=== PATIENT | male | born 1955 | race Caucasian/White ===

== ENCOUNTER 2020-07-26 14:57 | Outpatient (REF) | payer BC, SELFPAY ==
[2020-07-26 17:49] LABS: Free T4 (Free Thyroxine) 1.54 ng/dL (0.71-1.85); Thyroid Stimulating Hormone 0.63 uIU/mL (0.32-4.0)
== END 2020-07-26 14:58 | disposition home or self-care (01) ==
LOC: HO.LAB 14:57
PROVIDERS: PCP Internal Medicine; Visit Provider Internal Medicine Endocrinology, Diabetes & Metabolism
DX: E89.0 Postprocedural hypothyroidism (principal)
CPT/HCPCS: 36415; 84439; 84443

== ENCOUNTER → 2020-07-29 07:57 | Outpatient (BNVA) | payer BC, SELFPAY | PROVIDERS: PCP Internal Medicine; Visit Provider Internal Medicine Endocrinology, Diabetes & Metabolism ==

== ENCOUNTER 2021-09-21 07:08 | Outpatient (REF) | payer BC, SELFPAY ==
[2021-09-21 07:38] LABS: MANUAL DIFF FLAG NO
[2021-09-21 08:12] LABS: Basophils Percent Auto 0.4 % (0-2); Eosinophils Absolute Auto 0.1 X10*3/uL (0.0-0.4); Eosinophils Percent Auto 1.6 % (0-4); Hematocrit 41.6 % (42.0-52.0); Hemoglobin 13.9 g/dl (14.0-18.0); Imm Gran Abs Auto 0.02 X10*3/uL (0.00-0.03); Imm Gran Pct Auto 0.3 % (0.0-0.4); Lymphocytes Absolute Auto 1.3 X10*3/uL (1.2-4.9); Lymphocytes Percent Auto 17.6 % (20-40); Mean Corpuscular HGB Conc 33.4 g/dl (31.0-36.0); Mean Corpuscular Hemoglobin 29.8 pg (27.0-33.0); Mean Corpuscular Volume 89.3 fL (80.0-98.0); Mean Platelet Volume 10.8 fL (9.4-12.4); Monocytes Absolute Auto 0.6 X10*3/uL (0.1-1.2); Monocytes Percent Auto 8.4 % (2-11); Neutrophils Absolute Auto 5.4 x10*3/uL (2.0-8.3); Neutrophils Percent Auto 71.7 % (45-73); Platelet Count 238 X10*3/uL (160-400); Red Blood Count 4.66 X10*6/uL (4.60-5.80); Red Cell Distribution Width 12.4 % (11.0-16.0); White Blood Count 7.5 X10*3/uL (4.8-10.8)
[2021-09-21 08:41] LABS: Appearance Urine CLOUDY; Color Urine YELLOW; Glucose Urine UA NEG (NEG); Leukocyte Esterase Urine 2+ (NEG); Nitrite Urine POS (NEG); PH 5.5 (5.0-8.0); UACC Culture Trigger YES; Urine Blood 3+ (NEG); Urine Ketones NEG (NEG); Urine Protein TRACE MG/DL (NEG-TRACE)
[2021-09-21 08:50] LABS: Bacteria Urine 4+ /LPF; RBC Urine 50-75 /HPF (0)
[2021-09-21 08:50] LABS: Alanine Aminotransferase 17 U/L (0-40); Albumin Level 3.9 g/dL (3.5-5.0); Alkaline Phosphatase 87 U/L (39-117); Anion Gap 12 (12-20); Aspartate Amino Transferase 20 U/L (5-37); Blood Urea Nitrogen 16 mg/dL (9-16); Calcium 9.1 mg/dL (8.4-10.2); Carbon Dioxide 27 mmol/L (22-29); Chloride 104 mmol/L (96-108); Cholesterol 180 mg/dL; Estimated Glomerular Filt Rate > 60; Glucose Fasting 106 mg/dL (60-99); HDL Cholesterol 74 mg/dL; LDL Cholesterol Calculated 98 mg/dl; Potassium 5.2 mmol/L (3.3-5.1); Sodium 138 mmol/L (135-145); Total Protein 6.9 g/dL (6.5-8.0); Triglycerides 42 mg/dL
[2021-09-21 09:00] LABS: Prostate Specific Antigen 1.49 ng/mL (<0.05-4.0); Vitamin D 25-OH Total 30.4 ng/mL (>30)
[2021-09-26 08:46] LABS: Testosterone, Total 628 ng/dL (250-1100)
== END 2021-09-21 07:09 | disposition home or self-care (01) ==
LOC: HO.LAB 07:08
PROVIDERS: PCP Internal Medicine; Visit Provider Internal Medicine
DX: Z00.00 Encounter for general adult medical examination without abnormal findings (principal); Z12.5 Encounter for screening for malignant neoplasm of prostate; E89.0 Postprocedural hypothyroidism; M85.89 Other specified disorders of bone density and structure, multiple sites; N52.2 Drug-induced erectile dysfunction; E55.9 Vitamin D deficiency, unspecified
CPT/HCPCS: 36415; 80053; 80061; 81001; 82306; 84153; 84403; 85025; 87086; 87088; 87186

== ENCOUNTER 2021-10-14 16:39 | Outpatient (REF) | payer BC, SELFPAY ==
[2021-10-14 18:02] LABS: Appearance Urine CLEAR; Color Urine YELLOW; Glucose Urine UA NEG (NEG); Leukocyte Esterase Urine NEG (NEG); Nitrite Urine NEG (NEG); PH 6.5 (5.0-8.0); Specific Gravity - Urine <= 1.005 (1.005-1.025); Urine Blood NEG (NEG); Urine Ketones NEG (NEG); Urine Protein NEG (NEG-TRACE)
== END 2021-10-14 16:40 | disposition home or self-care (01) ==
LOC: HO.LAB 16:39
PROVIDERS: PCP Internal Medicine; Visit Provider Internal Medicine
DX: N39.0 Urinary tract infection, site not specified (principal)
CPT/HCPCS: 81003

== ENCOUNTER 2021-12-16 16:04 | Outpatient (REF) | payer BC, SELFPAY ==
[2021-12-16 17:02] LABS: Free T4 (Free Thyroxine) 1.53 ng/dL (0.71-1.85); Thyroid Stimulating Hormone 1.05 uIU/mL (0.32-4.0)
== END 2021-12-16 16:05 | disposition home or self-care (01) ==
LOC: HO.LAB 16:04
PROVIDERS: PCP Internal Medicine; Visit Provider Internal Medicine Endocrinology, Diabetes & Metabolism
DX: E03.9 Hypothyroidism, unspecified (principal)
CPT/HCPCS: 36415; 84439; 84443

== ENCOUNTER 2022-10-20 07:30 | Outpatient (REF) | payer BC, SELFPAY ==
[2022-10-20 07:45] LABS: MANUAL DIFF FLAG NO
[2022-10-20 07:55] LABS: Basophils Absolute Auto 0.1 X10*3/uL (0.0-0.2); Basophils Percent Auto 1.3 % (0-2); Eosinophils Absolute Auto 0.2 X10*3/uL (0.0-0.4); Eosinophils Percent Auto 6.2 % (0-4); Hematocrit 43.8 % (42.0-52.0); Hemoglobin 14.3 g/dl (14.0-18.0); Imm Gran Abs Auto 0.01 X10*3/uL (0.00-0.03); Imm Gran Pct Auto 0.3 % (0.0-0.4); Lymphocytes Absolute Auto 1.5 X10*3/uL (1.2-4.9); Lymphocytes Percent Auto 38.7 % (20-40); Mean Corpuscular HGB Conc 32.6 g/dl (31.0-36.0); Mean Corpuscular Volume 91.8 fL (80.0-98.0); Monocytes Absolute Auto 0.4 X10*3/uL (0.1-1.2); Monocytes Percent Auto 10.8 % (2-11); Neutrophils Absolute Auto 1.7 x10*3/uL (2.0-8.3); Neutrophils Percent Auto 42.7 % (45-73); Platelet Count 210 X10*3/uL (160-400); Red Blood Count 4.77 X10*6/uL (4.60-5.80); Red Cell Distribution Width 13.2 % (11.0-16.0); White Blood Count 3.9 X10*3/uL (4.8-10.8)
[2022-10-20 08:24] LABS: Appearance Urine Clear; Color Urine Yellow; Glucose Urine UA Negative (Negative); Leukocyte Esterase Urine Negative (Negative); Nitrite Urine Negative (Negative); Specific Gravity - Urine 1.015 (1.005-1.025); Urine Blood Negative (Negative); Urine Ketones Negative (Negative); Urine Protein Negative (Neg-Trace)
[2022-10-20 08:31] LABS: Alanine Aminotransferase 29 U/L (0-40); Albumin Level 3.9 g/dL (3.5-5.0); Alkaline Phosphatase 73 U/L (39-117); Anion Gap 11 (12-20); Aspartate Amino Transferase 30 U/L (5-37); Blood Urea Nitrogen 19 mg/dL (9-16); Calcium 8.8 mg/dL (8.4-10.2); Carbon Dioxide 26 mmol/L (22-29); Chloride 105 mmol/L (96-108); Cholesterol 195 mg/dL; Estimated Glomerular Filt Rate > 60; Glucose Fasting 100 mg/dL (60-99); HDL Cholesterol 78 mg/dL; LDL Cholesterol Calculated 110 mg/dl; Potassium 4.7 mmol/L (3.3-5.1); Sodium 137 mmol/L (135-145); Total Protein 6.5 g/dL (6.5-8.0); Triglycerides 37 mg/dL
[2022-10-20 09:18] LABS: Free T4 (Free Thyroxine) 1.67 ng/dL (0.71-1.85); Prostate Specific Antigen 0.26 ng/mL (<0.05-4.0); Thyroid Stimulating Hormone 1.21 uIU/mL (0.32-4.0); Vitamin D 25-OH Total 41.7 ng/mL (>30)
== END 2022-10-20 07:31 | disposition home or self-care (01) ==
LOC: HO.LAB 07:30
PROVIDERS: PCP Internal Medicine; Visit Provider Internal Medicine
DX: Z00.00 Encounter for general adult medical examination without abnormal findings (principal); E89.0 Postprocedural hypothyroidism; E55.9 Vitamin D deficiency, unspecified; E78.00 Pure hypercholesterolemia, unspecified; Z12.5 Encounter for screening for malignant neoplasm of prostate
CPT/HCPCS: 36415; 80053; 80061; 81003; 82306; 84153; 84439; 84443; 85025

== ENCOUNTER 2023-06-04 08:59 | Day surgery (SDC) | payer BC, SELFPAY ==
--- NOTE | 2023-06-01 10:14 | P.CONAN_ITS ---
Documented by User: Janel August NP 06/01/23 10:14 HPI - Anesthesia Eval Consult details Narrative: 68yo M for Colonoscopy [facility] Active Problems Active Problems: All Active Problems (Updated 10/23/22 @ 19:13 by David Calhoun MD) Colon cancer screening (Acute) Skin exam for malignant neoplasm (Acute) Annual physical exam (Acute) Urinary tract infection (Acute) Acquired hypothyroidism (Acute) Osteopenia (Acute) Erectile dysfunction (Acute) Past Medical History Medical History Acquired hypothyroidism History of Graves' disease Hx of radioactive iodine thyroid ablation (~1990) Osteopenia Family History Family History Father Diabetes Hypertension Cancer Mother Hypertension Surgical History Surgical History No pertinent past surgical history Social History [facility] Alcohol intake: current Alcohol intake frequency: holidays/special occasions only Patient Tobacco Use Status: Never used Tobacco e-Cigarette/Vaping Use: Never Used Second Hand Smoke Exposure: Yes Use of substances other than those prescribed or required for medical reasons: No Are you DNR?: No Advance Directives: No Advance Directives Information Provided: Yes service: No Current occupational status: employed Cognitive needs: No Hearing needs: No Vision needs: Yes Meds Allergies Allergy/AdvReac Type Severity Reaction Status Date / Time No Known Allergies Allergy Verified 10/23/22 17:31 Assessment and Plan Assessment Anesthesia Assessment: Chart Reviewed Documented by User: Liz Miranda MD 06/04/23 10:30 PMFSH Past Medical History Medical History Acquired hypothyroidism History of Graves' disease Hx of radioactive iodine thyroid ablation (~1990) Osteopenia Family History Family History Father Diabetes Hypertension Cancer Mother Hypertension Family history of problems with anesthesia: No Surgical History Surgical History No pertinent past surgical history History of Problems with Anesthesia: No Social History Social History Housing: Condominium Alcohol intake: current Alcohol intake frequency: holidays/special occasions only Patient Tobacco Use Status: Never used Tobacco e-Cigarette/Vaping Use: Never Used Second Hand Smoke Exposure: Yes Use of substances other than those prescribed or required for medical reasons: No Are you DNR?: No Advance Directives: No Advance Directives Information Provided: Yes service: No Current occupational status: employed Cognitive needs: No Hearing needs: No Vision needs: Yes Meds Allergies Allergy/AdvReac Type Severity Reaction Status Date / Time No Known Allergies Allergy Verified 10/23/22 17:31 Exam Airway Mallampati Class: II TM Dist: >3cm Neck ROM: Full Heart: rrr Lungs: cta Assessment and Plan Assessment Anesthesia Assessment: Anesthesia Plan Discussed Final Anesthetic Review Family History of Problems with Anesthesia: No History of Problems with Anesthesia: No NPO: Yes ASA Class: II Final Preanesthetic Review: No Changes in Pt Med Stat, Meds/Allgs Chart Reviewed and Consent Obtained/Reviewed Patient Risk: Intermediate Procedure Risk: Intermediate Anesthetic Plan Anesthetic Plan: MAC: Disposition: Standard PACU
[2023-06-04 09:52] VITALS: BMI 22.4
[2023-06-04] MEDS: Lactated Ringers 1,000 ML 100 ML IVCONT (10:01)
[2023-06-04 10:02] VITALS: BP 114/84; PULSE 91; RESP 16; TEMP 36.1; O2SAT 98
[2023-06-04 11:17] VITALS: BP 91/43; PULSE 88; RESP 16; TEMP 36.1; O2SAT 96
--- NOTE | 2023-06-04 11:21 | PM.OP ---
Brief Operative Note Date of Service: 06/04/23 Pre-op diagnosis: Screening Post-op diagnosis: other (Polyp) Procedure: Colonoscopy to the cecum and TI with bx/removal of polyp Surgeon: Ayaz Jackson MD Anesthesia: MAC Was an Licensed Journeyman Electrician used for this Procedure?: No Estimated blood loss (mL): 2.0 Pathology: other (A. Polyp at 50cm) Condition: stable Disposition: PACU
[2023-06-04 11:32] VITALS: BP 111/64; PULSE 83; RESP 16; O2SAT 97
[2023-06-04 11:47] VITALS: PULSE 78; RESP 16; TEMP 36.1; O2SAT 99
--- NOTE | 2023-06-04 12:46 | OP_ITS ---
DATE OF SERVICE: 06/04/2023 SURGEON: Ayaz Jackson MD INDICATIONS: The patient presents for evaluation of personal history of tubular adenoma of the colon and colorectal cancer screening. Full consent was obtained from him for this, including risks of bleeding and perforation. PREOPERATIVE DIAGNOSIS: POSTOPERATIVE DIAGNOSIS: PROCEDURE PERFORMED: Colonoscopy to cecum and terminal ileum with biopsy, removal of polyp. ESTIMATED BLOOD LOSS: COMPLICATIONS: ANESTHESIA: Monitored anesthesia care. ASSISTANTS: SPECIMENS: PREOPERATIVE DIAGNOSES: Personal history of tubular adenoma of the colon, colorectal cancer screening. POSTOPERATIVE DIAGNOSES: Personal history of tubular adenoma of the colon, colorectal cancer screening, small colon polyp, mild diverticulosis, and internal hemorrhoids. DESCRIPTION OF PROCEDURE: The patient was placed in the left lateral decubitus position. The digital rectal exam revealed no abnormalities. The Olympus video pediatric colonoscope was entered into the rectum and advanced easily to the cecum. Once in the cecum, I did identify normal-appearing cecal pouch with appendiceal orifice and a normal-appearing ileocecal valve. The terminal ileum was cannulated and appeared normal. The scope was withdrawn back in the colon. The entire cecum and ileocecal valve appeared normal. The scope was slowly withdrawn assessing all mucosal surfaces carefully. Preparation was excellent. At 50 cm was a flat, approximately 3 or 4 mm polyp, which was biopsied and completely removed with cold biopsy forceps. I did not visualize any other polyps, colitis, nor angiodysplasia. There was a mild amount of sigmoid diverticulosis. In the rectum, scope was retroflexed visualizing small internal hemorrhoids, but no other pathology. The rectal mucosa appeared normal. The scope was straightened and withdrawn from the patient. He tolerated the procedure well and was returned to the recovery area in stable condition. IMPRESSION: 1. Small colon polyp. 2. Mild diverticulosis. 3. Small internal hemorrhoids. PLAN: The results of the biopsy will be checked. I would recommend a repeat colonoscopy in 5 years. He will otherwise see me on a p.r.n. basis. MD MERI Faye/MARTINA / [phone]
== END 2023-06-04 12:17 | disposition home or self-care (01) ==
PROVIDERS: PCP Internal Medicine; Visit Provider Internal Medicine
PROC: 0DJD8ZZ Inspection of Lower Intestinal Tract, Via Natural or Artificial Opening Endoscopic (ICD-10-PCS; CPT 45378; principal; 2023-06-04 10:30)
DX: Z12.11 Encounter for screening for malignant neoplasm of colon (principal); D12.5 Benign neoplasm of sigmoid colon; K57.30 Diverticulosis of large intestine without perforation or abscess without bleeding; K64.8 Other hemorrhoids; Z86.010 Personal history of colon polyps; E03.9 Hypothyroidism, unspecified; Z79.899 Other long term (current) drug therapy
CPT/HCPCS: 45380; 88305; J2704

== ENCOUNTER 2023-12-25 07:15 | Outpatient (REF) | payer MEDICARE, SELFPAY ==
[2023-12-25 07:29] LABS: MANUAL DIFF FLAG NO
[2023-12-25 07:42] LABS: Basophils Percent Auto 0.7 % (0-2); Eosinophils Absolute Auto 0.4 X10*3/uL (0.0-0.4); Eosinophils Percent Auto 8.4 % (0-4); Hemoglobin 13.3 g/dl (14.0-18.0); Imm Gran Abs Auto 0.02 X10*3/uL (0.00-0.03); Imm Gran Pct Auto 0.5 % (0.0-0.4); Lymphocytes Absolute Auto 1.7 X10*3/uL (1.2-4.9); Lymphocytes Percent Auto 40.1 % (20-40); Mean Corpuscular HGB Conc 31.7 g/dl (31.0-36.0); Mean Corpuscular Hemoglobin 27.4 pg (27.0-33.0); Mean Corpuscular Volume 86.4 fL (80.0-98.0); Mean Platelet Volume 11.1 fL (9.4-12.4); Monocytes Absolute Auto 0.5 X10*3/uL (0.1-1.2); Monocytes Percent Auto 10.7 % (2-11); Neutrophils Absolute Auto 1.7 x10*3/uL (2.0-8.3); Neutrophils Percent Auto 39.6 % (45-73); Platelet Count 247 X10*3/uL (160-400); Red Blood Count 4.86 X10*6/uL (4.60-5.80); Red Cell Distribution Width 13.7 % (11.0-16.0); White Blood Count 4.2 X10*3/uL (4.8-10.8)
[2023-12-25 08:10] LABS: Alanine Aminotransferase 23 U/L (0-40); Alkaline Phosphatase 81 U/L (39-117); Anion Gap 10 (12-20); Aspartate Amino Transferase 29 U/L (5-37); Bilirubin Total 0.8 mg/dL (0.0-1.0); Blood Urea Nitrogen 16 mg/dL (9-16); Calcium 8.8 mg/dL (8.4-10.2); Carbon Dioxide 27 mmol/L (22-29); Chloride 107 mmol/L (96-108); Cholesterol 197 mg/dL (<200); Estimated Glomerular Filt Rate > 60; Glucose Fasting 96 mg/dL (60-99); HDL Cholesterol 83 mg/dL (>40); LDL Cholesterol Calculated 104 mg/dL (<100); Potassium 4.6 mmol/L (3.3-5.1); Sodium 139 mmol/L (135-145); Total Protein 7.2 g/dL (6.5-8.0); Triglycerides 51 mg/dL (<150)
[2023-12-25 08:27] LABS: Estimated Average Glucose 111 mg/dL; Free T4 (Free Thyroxine) 1.43 ng/dL (0.71-1.85); Hemoglobin A1c % 5.5 % (<6.0); Thyroid Stimulating Hormone 0.75 uIU/mL (0.32-4.0); Vitamin D 25-OH Total 39.1 ng/mL (>30)
[2023-12-25 08:45] LABS: Appearance Urine Clear; Color Urine Yellow; Glucose Urine UA Negative (Negative); Leukocyte Esterase Urine Negative (Negative); Nitrite Urine Negative (Negative); PH 6.5 (5.0-9.0); Specific Gravity - Urine 1.015 (1.005-1.025); Urine Blood Negative (Negative); Urine Ketones Negative (Negative); Urine Protein Negative (Neg-Trace)
[2023-12-25 10:53] LABS: Prostate Specific Antigen Scr 0.44 ng/mL (<0.05-4.0)
== END 2023-12-25 07:16 | disposition home or self-care (01) ==
LOC: HO.LAB 07:15
PROVIDERS: PCP Internal Medicine; Visit Provider Internal Medicine
DX: Z00.00 Encounter for general adult medical examination without abnormal findings (principal); Z12.5 Encounter for screening for malignant neoplasm of prostate; R73.9 Hyperglycemia, unspecified; E03.9 Hypothyroidism, unspecified; E78.00 Pure hypercholesterolemia, unspecified; E55.9 Vitamin D deficiency, unspecified; R30.0 Dysuria
CPT/HCPCS: 36415; 80053; 80061; 81003; 82306; 83036; 84153; 84439; 84443; 85025

== ENCOUNTER 2024-01-04 13:37 | Outpatient (AMB) | payer MEDICARE, SELFPAY ==
--- NOTE | 2024-01-04 13:43 | MHC.PC.OV ---
Vital Signs 01/04/24 13:45 Height 5 ft 9 in Weight 160 lb 0.6 oz BMI 23.6 BP 88/62 L Blood Pressure Location Lt brachial Position Sitting Pulse 82 Pulse Source Pulse Oximeter Pulse Oximetry (%) 96 Oxygen Delivery Method Room Air Intake Visit Reasons: annual exam Php Web Developer Required: No Allergies No Known Allergies Allergy (Verified 01/04/24 14:27) Medication List - Last Reconciled 01/04/24 by David Calhoun MD levothyroxine 150 mcg PO DAILY 90 days sildenafil 100 mg PO DAILY PRN Tobacco use date assessed: 01/04/24 Fall risk assessment: No Falls in past year Last assessed Fall Risk: 01/04/24 Dental Screening Dental Screen Date: 01/04/24 Did you have a dental visit in the last 12 months?: Yes Did you have a dental problem in the last 6 months where you did not have access to dental care?: No Was dental information given to patient?: Patient has dentist HPI annual exam HPI Details Patient comes in today for his annual physical examination States that he currently feels okay He denies any headaches or dizziness Denies any chest pains, no SOB No nausea/vomiting, no abdominal pain No change in bowel habits noted States that he has to wake up on average one time every night to use the bathroom; he denies any dysuria or frequency or urgency Patient states though that he would like to find out what he can do to make sure that he does not have prostate cancer at this time He had his follow up labs done last week - to discuss his results He had his repeat colonoscopy done with Dr. Jackson back in May 2023 - was advised that he will need repeat colonoscopy in 5 years [facility] Medical History (Updated 01/04/24 @ 14:36 by David Calhoun MD) History of Graves' disease Hx of radioactive iodine thyroid ablation (~1990) Acquired hypothyroidism Osteopenia Surgical History (Updated 01/04/24 @ 15:16 by David Calhoun MD) Hx of colonoscopy Family History Father Diabetes Hypertension Cancer Mother Hypertension Social History Housing: Condominium Alcohol intake: current Alcohol intake frequency: holidays/special occasions only Patient Tobacco Use Status: Never used Tobacco e-Cigarette/Vaping Use: Never Used Second Hand Smoke Exposure: Yes service: No Current occupational status: employed Cognitive needs: No Hearing needs: No Vision needs: Yes Questionnaire PHQ-9 Over the last 2 weeks, how often have you been bothered by any of the following problems? 1. Little interest or pleasure in doing things: not at all 2. Feeling down, depressed, or hopeless: not at all 3. Trouble falling or staying asleep, or sleeping too much: not at all 4. Feeling tired or having little energy: not at all 5. Poor appetite or overeating: not at all 6. Feeling bad about yourself - or that you are a failure or have let yourself or your family down: not at all 7. Trouble concentrating on things, such as reading the newspaper or watching television: not at all 8. Moving or speaking so slowly that other people could have noticed. Or the opposite - being so fidgety or restless that you have been moving around a lot more than usual: not at all 9. Thoughts that you would be better off or of hurting yourself in some way: not at all Total score: 0 Depression Screening Interpretation: Negative Depression Screening Done: Yes 89659 - PHQ-9 Billing: Yes Source: Developed by Drs. Ayaz Smith, Larisa Henao, Marcio Rosario and colleagues, with an educational conrad from [employer]. Thrive Questionnaire Date Thrive assessed: 01/04/24 I am a: Patient What is your living situation today?: I have a steady place to live Within the past 12 months, did the food you bought not last and you didn't have the money to get more?: Never true Within the past 12 months, did you worry whether your food would run out before you got money to buy more?: Never true Do you have trouble paying for medicines?: No Do you have trouble getting transportation to medical appointments?: No Do you have trouble paying your heating and electricity bill?: No Do you have trouble taking care of your child, family member or friend?: No Do you have trouble with day-to-day activities such as bathing, preparing meals, shopping, managing finances, etc.?: No Are you currently unemployed and looking for a job?: No Are you interested in more education?: No Currently or been in a relationship where the following occur: No concerns reported THRIVE Score: 0 AUDIT C Alcohol Use Questionnaire (AUDIT-C) 1. How often do you have a drink containing alcohol?: 2-3 times a week 2. How many drinks containing alcohol do you have on a typical day when you are drinking?: 1 or 2 3. How often do you have six or more drinks on one occasion?: Never Total Score: 3 Score Reviewed/Action Taken: Yes RAE-7 AMB Questionnaire RAE-7 Date RAE - 7 assessed: 01/04/24 Feeling nervous, anxious, or on edge: 0 = Not at all Not being able to stop or control worryin = Not at all Worrying too much about different things: 0 = Not at all Trouble relaxin = Not at all Being so restless that it is hard to sit still: 0 = Not at all Becoming easily annoyed or irritable: 0 = Not at all Feeling afraid as if something awful might happen: 0 = Not at all Total RAE-7 score (0-4 normal; 5-9 mild; 10-14 moderate; 15-21 severe): 0 Source: Developed by Drs. Ayaz Smith, Larisa Henao, Marcio Rosario and colleagues, with an educational conrad from [employer]. RAE-7 Assessment Billing RAE-7 Assessment Tool: RAE-7 Assessment 22353 Review of Systems Const Denies chills, Denies fatigue, Denies fever(s), Denies headache(s), Denies malaise and Denies weakness Eyes Denies blurry vision, Denies change in vision, Denies irritation and Denies itchy eyes ENT Denies dysphagia, Denies dizziness, Denies otalgia, Denies headache(s), Denies nasal congestion, Denies neck pain, Denies odynophagia and Denies sore throat Card Denies chest pain, Denies rapid heart rate, Denies irregular heart rhythm, Denies palpitations and Denies dyspnea Resp Denies chest congestion, Denies cough, Denies dyspnea and Denies wheezing GI Denies abdominal pain, Denies bloating, Denies constipation, Denies dysphagia, Denies heartburn, Denies diarrhea, Denies nausea, Denies odynophagia and Denies vomiting Denies hematuria, Denies difficulty urinating, Denies dysuria, Denies urinary frequency and Denies urinary urgency Musc Denies back pain, Denies arthralgias, Denies joint swelling, Denies muscle weakness and Denies neck pain Skin/Breast Denies change in pigmentation, Denies lesions, Denies rash and Denies unusual bruising Neuro Denies dizziness, Denies headache(s), Denies paresthesias and Denies weakness Endo Denies fatigue and Denies palpitations Aller/Immun Denies itchy eyes and Denies wheezing Physical exam (Primary Care) Vital Signs: Last Vital Signs Pulse 82 01/04/24 13:45 BP 88/62 L 01/04/24 13:45 Pulse Ox 96 01/04/24 13:45 Oxygen Delivery Method Room Air 01/04/24 13:45 BMI result Body Mass Index 23.6 Tobacco/Smoking Status: Tobacco use Status Tobacco use date assessed 01/04/24 01/04/24 13:46 Patient Tobacco Use Status Never used Tobacco 01/04/24 13:43 e-Cigarette/Vaping Use Never Used 01/04/24 13:43 PHQ-9: PHQ-9 Score PHQ-9: Total score 0 01/04/24 13:54 Depression Screening Interpretation: Negative Thrive Assessment: Date of Thrive Assessment Date Thrive assessed 01/04/24 01/04/24 13:52 Currently or been in a relationship where the following occur: No concerns reported Const General: no acute distress, alert and awake Orientation/consciousness: patient oriented x3 HENMT Head: Yes normocephalic and Yes atraumatic Ears: external ears normal, TM's normal bilaterally and EAC's normal General nose exam: No nasal discharge present Face and sinus: Yes normal facial exam and Yes sinuses nontender Teeth and gingiva: dentition normal Throat: Yes posterior oropharynx normal and Yes tonsils normal (no TP congestion) Eyes Eyelids: Yes eyelids normal Conjunctivae: conjunctivae normal Pupils: Equal, round and reactive pupils present EOM: EOMs intact bilaterally Neck Neck: Yes no lymphadenopathy and Yes supple Thyroid: Thyroid normal Resp Auscultation: clear to auscultation bilaterally, no rales and no wheezes Cardio Rate: regular rate Rhythm: regular rhythm Heart sounds: no murmurs GI Palpation (GI): Soft to palpation, nontender and No hepatosplenomegaly present Auscultation: normal bowel sounds General: Yes no CVA tenderness Back/Spine/Pelvis Back: no CVA tenderness Thoracic/Lumbar Spine: thoracic and lumbar spine normal to inspection Skin Lesions: no lesions Rashes: no rashes Neuro General: patient oriented x3, moves all extremities, no focal motor deficits and CN's II-XI intact bilaterally Cranial nerves: Yes Equal, round and reactive pupils present Cognition (Neuro): normal cognition Gait exam (Neuro): Normal gait present Extrem General: Yes no clubbing, cyanosis or edema Results Reviewed Results Reviewed: Laboratory Tests 12/25/23 12/25/23 07:25 07:28 WBC 4.2 L Hgb 13.3 L Hct 42.0 Plt Count 247 Sodium 139 Potassium 4.6 Creatinine 1.00 Estimated GFR > 60 Fasting Glucose 96 Hemoglobin A1c % 5.5 Calcium 8.8 AST 29 ALT 23 Triglycerides 51 Cholesterol 197 LDL Cholesterol, Calc 104 H HDL Cholesterol 83 PSA Screen 0.44 25-OH Vitamin D Total 39.1 Free T4 1.43 Ur Specific [place] 1.015 Urine Protein Negative Urine Glucose (UA) Negative Urine Blood Negative Urine Nitrite Negative Ur Leukocyte Esterase Negative Assessment and Plan Assessment & Plan (1) Annual physical exam: Code(s): Z00.00 - Encounter for general adult medical examination without abnormal findings Plan: Results of his labs done last week reviewed and discussed with patient He is up-to-date with his cancer screenings - is not due for his next colonoscopy until 2027 (2) Acquired hypothyroidism: Comment: postablative hypothyroidism Code(s): E03.9 - Hypothyroidism, unspecified Plan: He is advised that his TFTs were normal on his recent labs Continue Levothyroxine 150 mcg QD He was last seen by Dr. Allred in 05/2022 and was advised to just follow up with his PCP as he remains clinically euthyroid on his current Levothyroxine dose He is advised that he can return to endocrinology at any time if any new issues or problems arise (3) Osteopenia: Code(s): M85.80 - Other specified disorders of bone density and structure, unspecified site Qualifiers: Osteopenia location: multiple sites Qualified Code(s): M85.89 - Other specified disorders of bone density and structure, multiple sites Plan: BMD done in 2018 revealed (+) osteopenia, with the lowest T score value of -1.6 in the lumbar spine Fall precautions reinforced; patient is reminded to continue taking his oral Calcium and Vitamin D supplements daily Plan, per endocrinology, is to repeat his BMD in a few years and if his BMD declines further, will need further work ups Patient states that he remains physically active and currently feels okay and prefers to put off his repeat BMD for now (4) Erectile dysfunction: Code(s): N52.9 - Male erectile dysfunction, unspecified Qualifiers: Erectile dysfunction type: drug-induced Qualified Code(s): N52.2 - Drug-induced erectile dysfunction Plan: Continue Sildenafil 100 mg PRN (5) Benign prostatic hyperplasia with nocturia: Code(s): N40.1 - Benign prostatic hyperplasia with lower urinary tract symptoms; R35.1 - Nocturia Plan: Patient states that he only needs to use the bathroom once at night and feels this is more than tolerable for him but the main thing he wants is to get tested for prostate cancer to be sure he is not coming down with it Will refer him to urology for further evaluation and management Plan To return in 1 year for his next annual physical examination As before, will have patient recheck his labs just BEFORE he comes in for his next appointment Orders: Orders Comprehensive [place]. Panel Fast 1 Year E78.00 - Pure hypercholesterolemia, unspecified Vitamin D 25-OH Total 1 Year E55.9 - Vitamin D deficiency, unspecified Lipid Panel 1 Year E78.00 - Pure hypercholesterolemia, unspecified Complete Blood Count Auto Diff 1 Year D64.9 - Anemia, unspecified Thyroid Stimulating Hormone 1 Year E03.9 - Hypothyroidism, unspecified Free T4 (Free Thyroxine) 1 Year E03.9 - Hypothyroidism, unspecified UA CC w/rflx Micro + Cult 1 Year R30.0 - Dysuria Referrals Urology Referral N40.1 - Benign prostatic hyperplasia with lower urinary tract symptoms, R35.1 - Nocturia Coding Level of Care Code Est Pt Prev Care >65y(34229) Diagnoses Annual physical exam Z00.00 Acquired hypothyroidism E03.9 Osteopenia of multiple sites M85.89 Osteopenia location: multiple sites 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 Erectile dysfunction type: drug-induced Benign prostatic hyperplasia with nocturia N40.1; R35.1 Additional Codes RAE-7 Assessment Billing - RAE-7 Assessment Tool: RAE-7 Assessment [id number] ([id number])
[2024-01-04 13:45] VITALS: BP 88/62; PULSE 82; O2SAT 96; BMI 23.6
== END 2024-01-04 14:52 | disposition home or self-care (01) ==
PROVIDERS: PCP Internal Medicine; Visit Provider Internal Medicine
DX: E03.9 Hypothyroidism, unspecified (principal); M85.89 Other specified disorders of bone density and structure, multiple sites; N52.2 Drug-induced erectile dysfunction; N40.1 Benign prostatic hyperplasia with lower urinary tract symptoms; R35.1 Nocturia
CPT/HCPCS: 99214

== ENCOUNTER 2024-03-03 10:17 | Outpatient (AMB) | payer MEDICARE, SELFPAY ==
--- NOTE | 2024-03-03 10:18 | A.OFFVIS_ITS ---
Intake Visit Reasons: BPH with LUTS Intake Note: Patient is present for BPH WITH LUTS Urology Medication:NONE Antibiotic Allergy:NONE Blood Thinner:NONE TODAY'S PVR:0ML'S Project Development Engineer Required: No Allergies No Known Allergies Allergy (Verified 03/03/24 10:19) HPI Comments Details: Christopher is a 68 year old male with concerns regarding prostate, he states he has had changes in urination. AUA score 14. He admits that he drinks about 3-4 cups of coffee during the day. Denies FH of prostate cancer. Denies use of nicotine. Discussed PSA results, 12/25/23--0.44 ng/mL. Prostate exam, mildly enlarged,smooth, irregular no hard nodules. UA - negative. Plan US retroperitoneum. [facility] Medical History History of Graves' disease Hx of radioactive iodine thyroid ablation (~1990) Acquired hypothyroidism Osteopenia Surgical History Hx of colonoscopy Family History Father Diabetes Hypertension Cancer Mother Hypertension [facility] Alcohol intake: current Alcohol intake frequency: holidays/special occasions only Patient Tobacco Use Status: Never used Tobacco e-Cigarette/Vaping Use: Never Used Second Hand Smoke Exposure: Yes service: No Current occupational status: employed Cognitive needs: No Hearing needs: No Vision needs: Yes Review of Systems Const All systems reviewed & are unremarkable except as noted in HPI and below Reports no additional complaints Eyes Reports no additional complaints ENT Reports no additional complaints Card Reports no additional complaints Resp Reports no additional complaints GI Reports no additional complaints Reports as per HPI Musc Reports no additional complaints Skin/Breast Reports system reviewed and no additional complaints, except as documented Neuro Reports no additional complaints Psych Reports no additional complaints Endo Reports no additional complaints Saad/Lymph Reports no additional complaints Aller/Immun Reports no additional complaints Physical Exam Const General: healthy appearing, no acute distress and well developed Orientation/consciousness: patient oriented x3 HEENT Head: Yes normocephalic and Yes atraumatic Eyes Conjunctivae: conjunctivae normal Neck Neck: Yes normal visual inspection Chest Chest palpation & inspection: normal inspection of the chest Resp Effort & Inspection: normal respiratory effort Cardio Rate: regular rate GI Inspection: Yes normal to inspection Palpation (GI): Soft to palpation Other: Prostate Exam: Smooth, mildly irregular, no suspicious nodules, mildly enlarged. Findings within normal limits. Skin General skin exam: no rashes or lesions noted Neuro General: patient oriented x3 Extrem General: No pedal edema Psych Appearance: grossly normal Affect: normal affect Office Procedures Post Void Residual Post Residual Void Post Void Residual (PVR): 0 [id number] Void Residual by ultrasound Results AMB Urinalysis, Automated UA Leukoctes 0 Anna Marie/uL Last Edit by RUSTY Claros on 03/03/24 10:33 UA Nitrite Negative Last Edit by RUSTY Claros on 03/03/24 10:33 UA Urobilinogen 0.2 mg/dL Last Edit by Brenton Whitt CCM on 03/03/24 10:3 3 UA Protein 0 mg/dL Last Edit by Brenton Whitt CCM on 03/03/24 10:33 UA pH 6.0 Last Edit by Brenton Whitt CCM on 03/03/24 10:33 UA Blood 0 Viral/uL Last Edit by Brenton Whitt CCM on 03/03/24 10:33 UA Specific Heaters 1.010 Last Edit by Brenton Whitt CCM on 03/03/24 10: 33 UA Ketone Negative Last Edit by RUSTY Claros on 03/03/24 10:33 UA Bilirubin 0 mg/dL Last Edit by Brenton Whitt [facility] on 03/03/24 10:33 UA Glucose 0 mg/dL Last Edit by Brenton Whitt CCM on 03/03/24 10:33 Quality Reporting (2019) Benign Prostatic Hyperplasia ([facility] 771) AUA symptom score: 14 Quality of life due to urinary symptoms: If you were to spend the rest of your life with your urinary condition the way it is now, how would you feel about that?: Mostly Satisfied Results Reviewed Results Reviewed: Laboratory Last Values Urine pH (Auto) 6.0 03/03/24 10:32 Specific Heaters (Auto) 1.010 03/03/24 10:32 Urine Protein (Auto) 0 mg/dL 03/03/24 10:32 Glucose (UA)(Auto) 0 mg/dL 03/03/24 10:32 Urine Ketones (Auto) Negative 03/03/24 10:32 Urine Blood (Auto) 0 Viral/uL 03/03/24 10:32 Urine Nitrite (Auto) Negative 03/03/24 10:32 Urine Bilirubin (Auto) 0 mg/dL 03/03/24 10:32 Urine Urobilinogen (Auto) 0.2 mg/dL 03/03/24 10:32 Leukocyte Esterase (Auto) 0 Anna Marie/uL 03/03/24 10:32 Assessment & Plan Assessment & Plan (1) Urinary frequency: Code(s): R35.0 - Frequency of micturition Category: Medical (2) Benign prostatic hyperplasia with nocturia: Code(s): N40.1 - Benign prostatic hyperplasia with lower urinary tract symptoms; R35.1 - Nocturia Category: Medical Plan US retroperitoneum. Orders: Orders AMB Urinalysis Automated Today Z13.9 - Encounter for screening, unspecified Patient Instructions: The patient had an opportunity to ask questions regarding treatment plan. The patient expressed understanding and agreement with the above treatment plan. The patient is aware they should contact our office by phone for worsening of their current condition or the appearance of new symptoms. Compliance is encouraged with any medications and followup testing that is ordered. It is a privilege to be allowed the opportunity to participate in the urologic care of your patient. If you have any questions or concerns regarding treatment for the above conditions please do not hesitate to contact me. The office telep tammy contact is [phone]. This note is constructed in part using voice recognition software. While every effort has been made to ensure accuracy rough carpenter errors may have been included. Yours sincerely, Ty Laird MD Coding Level of Care Code New Pt Level 4 (91041) Diagnoses Urinary frequency R35.0 Benign prostatic hyperplasia with nocturia N40.1; R35.1 CPT Codes Post Residual Void - PVR CPT Code: 59244-Obca Void Residual by ultrasound ([id number]) AUA Symptom Score AUA Incomplete emptying - It does not feel like I empty my bladder all the way.: 1 - Less than 1 time in 5 Frequency - I have to go again less than two hours after I finish urinating.: 4 - More than half the time Intermittency - I stop and start again several times when I urinate.: 2 - Less than half the time Urgency - It is hard to wait when I have to urinate.: 3 - About half the time Weak stream - I have a weak urinary stream.: 1 - Less than 1 time in 5 Straining - I have to push or strain to begin urination.: 1 - Less than 1 time in 5 Nocturia - I get up to urinate after I go to bed until the time I get up in the morning.: 2 times AUA Symptom Score: 14 Quality of life due to urinary symptoms: If you were to spend the rest of your life with your urinary condition the way it is now, how would you feel about that?: Mostly Satisfied Source: David ESPINOSA, Ceasar BROWN Jr, O'Magali MP, et al, and the Measurement Committee of the [place] [employer]. The [place] [employer] symptom index for benign prostatic hyperplasia. J Urol. 1992; 148: 8381-8963. Copyright 1992 [place] [employer]
== END 2024-03-03 11:04 | disposition home or self-care (01) ==
PROVIDERS: PCP Internal Medicine; Visit Provider Urology
DX: N40.1 Benign prostatic hyperplasia with lower urinary tract symptoms (principal); R35.0 Frequency of micturition; R35.1 Nocturia; Z13.9 Encounter for screening, unspecified
CPT/HCPCS: 99204

== ENCOUNTER → 2024-03-03 10:17 | Outpatient (BNVA) | payer MEDICARE, SELFPAY | PROVIDERS: PCP Internal Medicine; Visit Provider Urology | DX: N40.1 Benign prostatic hyperplasia with lower urinary tract symptoms (principal); R35.0 Frequency of micturition; R35.1 Nocturia | CPT/HCPCS: 51798; 81003; 99202 ==

== ENCOUNTER 2024-05-07 10:01 | Outpatient (REF) | payer MEDICARE, SELFPAY | END 2024-05-07 10:02 | disposition home or self-care (01) | LOC: HO.US 10:01 | PROVIDERS: Visit Provider Urology | DX: R35.0 Frequency of micturition (principal); N40.1 Benign prostatic hyperplasia with lower urinary tract symptoms; R35.1 Nocturia; N39.0 Urinary tract infection, site not specified; N52.2 Drug-induced erectile dysfunction | CPT/HCPCS: 76770 ==

== ENCOUNTER 2024-05-12 08:36 | Outpatient (AMB) | payer MEDICARE, SELFPAY ==
--- NOTE | 2024-05-11 15:23 | MHC.OFFVIS ---
Intake Visit Reasons: 10w/US Intake Note: Patient is present for 10w/US Urology Medication:NONE Antibiotic Allergy:NONE Blood Thinner:NONE Facial Operator Required: No Allergies No Known Allergies Allergy (Verified 05/12/24 08:37) Medication List - Last Reconciled 05/12/24 by Ty Laird MD cephalexin 500 mg PO BID levothyroxine 150 mcg PO DAILY 90 days sildenafil 100 mg PO DAILY PRN HPI Comments Details: 05/12/24--complains of urge incontinence, Renal US -05/07/24-images, US retroperitoneum--Left kidney simple cyst, no solid parenchymal lesions, bladder moderate PVR- 217 ML, bilateral ureteral jets. viagra 100 mg prn prescribed by PCP Discusses options to help with bladder emptying also discussed as bladder wall may thicken and contribute to bladder spasms. Pt wants to avoid medications. H/O kidney stones, 24 hr urine pending. monitor PSA. Pt states father had bladder cancer. fu in 9 months check PVR consider cysto. review of chart: 03/03/24--Christopher is a 68 year old male with concerns regarding prostate, he states he has had changes in urination. AUA score 14. He admits that he drinks about 3-4 cups of coffee during the day. Denies FH of prostate cancer. Denies use of nicotine. Discussed PSA results, 12/25/23--0.44 ng/mL. Prostate exam, mildly enlarged,smooth, irregular no hard nodules. UA - negative. Plan US retroperitoneum. [facility] Medical History History of Graves' disease Hx of radioactive iodine thyroid ablation (~1990) Acquired hypothyroidism Osteopenia Surgical History Hx of colonoscopy Family History Father Diabetes Hypertension Cancer Mother Hypertension Social History [facility]: [facility] Alcohol intake: current Alcohol intake frequency: holidays/special occasions only Patient Tobacco Use Status: Never used Tobacco e-Cigarette/Vaping Use: Never Used Second Hand Smoke Exposure: Yes service: No Current occupational status: employed Cognitive needs: No Hearing needs: No Vision needs: Yes Review of Systems Const All systems reviewed & are unremarkable except as noted in HPI and below Reports no additional complaints Eyes Reports no additional complaints ENT Reports no additional complaints Card Reports no additional complaints Resp Reports no additional complaints GI Reports no additional complaints Reports as per HPI Musc Reports no additional complaints Skin/Breast Reports system reviewed and no additional complaints, except as documented Neuro Reports no additional complaints Psych Reports no additional complaints Endo Reports no additional complaints Saad/Lymph Reports no additional complaints Aller/Immun Reports no additional complaints Telehealth Telehealth Telehealth Platform: [employer] Location of provider rendering services: practice address Location of patient: address on file Patient Identification confirmed using: Name, : Yes Telehealth method: video Patient verbally consented to treatment: Yes Patient verbally consented to billing insurance company: Yes Patient informed of any privacy concerns related to visit: Yes Results Reviewed Results Reviewed: Reviewed images-- 05/07/24--US retroperitoneum--Left kidney simple cyst, no solid parenchymal lesions, bladder moderate PVR- 217 ML, bilateral ureteral jets. Assessment & Plan Assessment & Plan (1) Urinary frequency: Code(s): R35.0 - Frequency of micturition Category: Medical (2) Benign prostatic hyperplasia with nocturia: Code(s): N40.1 - Benign prostatic hyperplasia with lower urinary tract symptoms; R35.1 - Nocturia Category: Medical (3) History of kidney stones: Code(s): Z87.442 - Personal history of urinary calculi Category: Medical (4) Screening PSA (prostate specific antigen): Code(s): Z12.5 - Encounter for screening for malignant neoplasm of prostate Category: Medical Plan Pt wants to avoid medications. H/O kidney stones, 24 hr urine pending. monitor PSA FU telehealth in 8 weeks to discuss 24 hr urine results FU in 9 months PSA prior Orders: Orders PSA,Total (Free>4and<10) 8 Months N40.1 - Benign prostatic hyperplasia with lower urinary tract symptoms, R35.1 - Nocturia, Z12.5 - Encounter for screening for malignant neoplasm of prostate Patient Instructions: The patient had an opportunity to ask questions regarding treatment plan. The patient expressed understanding and agreement with the above treatment plan. The patient is aware they should contact our office by phone for worsening of their current condition or the appearance of new symptoms. Compliance is encouraged with any medications and followup testing that is ordered. It is a privilege to be allowed the opportunity to participate in the urologic care of your patient. If you have any questions or concerns regarding treatment for the above conditions please do not hesitate to contact me. The office telephone contact is [phone]. This note is constructed in part using voice recognition software. While every effort has been made to ensure accuracy trader errors may have been included. Yours sincerely, Ty Laird MD Coding Level of Care Code Tele Est Pt Level 4 (48739) Diagnoses Urinary frequency R35.0 Benign prostatic hyperplasia with nocturia N40.1; R35.1 History of kidney stones Z87.442 Screening PSA (prostate specific antigen) Z12.5
== END 2024-05-12 10:18 | disposition home or self-care (01) ==
LOC: HO.HUSH 08:37
PROVIDERS: PCP Internal Medicine; Visit Provider Urology
DX: N40.1 Benign prostatic hyperplasia with lower urinary tract symptoms (principal); R35.0 Frequency of micturition; R35.1 Nocturia; Z87.442 Personal history of urinary calculi; Z12.5 Encounter for screening for malignant neoplasm of prostate
CPT/HCPCS: 99214

== ENCOUNTER → 2024-05-12 08:36 | Outpatient (BNVA) | payer MEDICARE, SELFPAY | PROVIDERS: PCP Internal Medicine; Visit Provider Urology ==

== ENCOUNTER 2024-07-10 13:14 | Outpatient (AMB) | payer MEDICARE, SELFPAY ==
--- NOTE | 2024-07-10 09:56 | MHC.OFFVIS ---
Intake Visit Reasons: 8w/litholink (Set) Intake Note: Patient is present for 8W/LITHOLINK Urology Medication:SILDENAFIL Antibiotic Allergy:NONE Blood Thinner:NONE Chief Design Drafter Required: No Allergies No Known Allergies Allergy (Verified 07/10/24 13:15) HPI Comments Details: 07/10/24--Christopher is followed for kidney stones and LUTS. Discussed 24 hour urine results: Total volume 2.47 L, Calcium 261 mg; Oxalate 30 mg, Sodium 87, Citrate 763 mg. Instructed on importance of fluid intake, Low oxalate diet, low sodium diet. 05/12/24--complains of urge incontinence, Renal US -05/07/24-images, US retroperitoneum--Left kidney simple cyst, no solid parenchymal lesions, bladder moderate PVR- 217 ML, bilateral ureteral jets. viagra 100 mg prn prescribed by PCP Discusses options to help with bladder emptying also discussed as bladder wall may thicken and contribute to bladder spasms. Pt wants to avoid medications. H/O kidney stones, 24 hr urine pending. monitor PSA. Pt states father had bladder cancer. fu in 9 months check PVR consider cysto. review of chart: 03/03/24--Christopher is a 68 year old male with concerns regarding prostate, he states he has had changes in urination. AUA score 14. He admits that he drinks about 3-4 cups of coffee during the day. Denies FH of prostate cancer. Denies use of nicotine. Discussed PSA results, 12/25/23--0.44 ng/mL. Prostate exam, mildly enlarged,smooth, irregular no hard nodules. UA - negative. Plan US retroperitoneum. [facility] Medical History History of Graves' disease Hx of radioactive iodine thyroid ablation (~1990) Acquired hypothyroidism Osteopenia Surgical History Hx of colonoscopy Family History Father Diabetes Hypertension Cancer Mother Hypertension Social History [facility]: [facility] Alcohol intake: current Alcohol intake frequency: holidays/special occasions only Patient Tobacco Use Status: Never used Tobacco e-Cigarette/Vaping Use: Never Used Second Hand Smoke Exposure: Yes service: No Current occupational status: employed Cognitive needs: No Hearing needs: No Vision needs: Yes Review of Systems Const All systems reviewed & are unremarkable except as noted in HPI and below Reports no additional complaints Eyes Reports no additional complaints ENT Reports no additional complaints Card Reports no additional complaints Resp Reports no additional complaints GI Reports no additional complaints Reports as per HPI Musc Reports no additional complaints Skin/Breast Reports system reviewed and no additional complaints, except as documented Neuro Reports no additional complaints Psych Reports no additional complaints Endo Reports no additional complaints Saad/Lymph Reports no additional complaints Aller/Immun Reports no additional complaints Telehealth Telehealth Telehealth Platform: [employer] Location of provider rendering services: practice address Location of patient: address on file Patient Identification confirmed using: Name, : Yes Telehealth method: video Patient verbally consented to treatment: Yes Patient verbally consented to billing insurance company: Yes Patient informed of any privacy concerns related to visit: Yes Assessment & Plan Assessment & Plan (1) Urinary frequency: Code(s): R35.0 - Frequency of micturition Category: Medical (2) Benign prostatic hyperplasia with nocturia: Code(s): N40.1 - Benign prostatic hyperplasia with lower urinary tract symptoms; R35.1 - Nocturia Category: Medical (3) History of kidney stones: Code(s): Z87.442 - Personal history of urinary calculi Category: Medical (4) Screening PSA (prostate specific antigen): Code(s): Z12.5 - Encounter for screening for malignant neoplasm of prostate Category: Medical Plan Pt wants to avoid medications. H/O kidney stones, FU in one year PSA prior Patient Instructions: The patient had an opportunity to ask questions regarding treatment plan. The patient expressed understanding and agreement with the above treatment plan. The patient is aware they should contact our office by phone for worsening of their current condition or the appearance of new symptoms. Compliance is encouraged with any medications and followup testing that is ordered. It is a privilege to be allowed the opportunity to participate in the urologic care of your patient. If you have any questions or concerns regarding treatment for the above conditions please do not hesitate to contact me. The office telephone contact is [phone]. This note is constructed in part using voice recognition software. While every effort has been made to ensure accuracy electrical line mechanic errors may have been included. Yours sincerely, Ty Laird MD Coding Level of Care Code Tele Est Pt Level 3 (54623) Diagnoses Urinary frequency R35.0 Benign prostatic hyperplasia with nocturia N40.1; R35.1 History of kidney stones Z87.442 Screening PSA (prostate specific antigen) Z12.5
== END 2024-07-10 16:07 | disposition home or self-care (01) ==
LOC: HO.HUSH 13:14
PROVIDERS: PCP Internal Medicine; Visit Provider Urology
DX: N40.1 Benign prostatic hyperplasia with lower urinary tract symptoms (principal); R35.0 Frequency of micturition; R35.1 Nocturia; Z87.442 Personal history of urinary calculi; Z12.5 Encounter for screening for malignant neoplasm of prostate
CPT/HCPCS: 99213

== ENCOUNTER 2024-12-31 07:00 | Outpatient (REF) | payer MEDICARE, SELFPAY ==
[2024-12-31 07:31] LABS: MANUAL DIFF FLAG NO
[2024-12-31 08:26] LABS: Appearance Urine Clear; Glucose Urine UA Negative (Negative); PH 6.0 (5.0-9.0); Specific Gravity - Urine 1.020 (1.005-1.025)
[2024-12-31 08:30] LABS: Hematocrit 37.8 % (42.0-52.0); Hemoglobin 12.1 g/dl (14.0-18.0); Imm Gran Abs Auto 0.01 X10*3/uL (0.00-0.03); Imm Gran Pct Auto 0.3 % (0.0-0.4); Lymphocytes Absolute Auto 1.5 X10*3/uL (1.2-4.9); Mean Corpuscular HGB Conc 32.0 g/dl (31.0-36.0); Mean Corpuscular Hemoglobin 26.2 pg (27.0-33.0); Mean Corpuscular Volume 81.8 fL (80.0-98.0); NRBC Abs Auto 0.000 X10*3/uL (0.0-0.012); NRBC Pct Auto 0.0 /100WBC (0.0-0.2); Platelet Count 229 X10*3/uL (160-400); Red Blood Count 4.62 X10*6/uL (4.60-5.80); White Blood Count 3.6 X10*3/uL (4.8-10.8)
[2024-12-31 09:08] LABS: Alanine Aminotransferase 33 U/L (0-40); Albumin Level 4.0 g/dL (3.5-5.0); Alkaline Phosphatase 85 U/L (39-117); Anion Gap 10 (12-20); Aspartate Amino Transferase 33 U/L (5-37); Blood Urea Nitrogen 23 mg/dL (9-16); Calcium 8.4 mg/dL (8.4-10.2); Carbon Dioxide 25 mmol/L (22-29); Chloride 108 mmol/L (96-108); Cholesterol 184 mg/dL (<200); Estimated Glomerular Filt Rate > 60; HDL Cholesterol 79 mg/dL (>40); Potassium 4.4 mmol/L (3.3-5.1); Sodium 139 mmol/L (135-145); Total Protein 6.9 g/dL (6.5-8.0); Triglycerides 41 mg/dL (<150)
[2024-12-31 09:19] LABS: PSA,Total (Free>4and<10) 0.30 ng/mL (0.00-4.00)
[2024-12-31 09:28] LABS: Free T4 (Free Thyroxine) 1.62 ng/dL (0.71-1.85); Thyroid Stimulating Hormone 0.41 uIU/mL (0.32-4.0)
== END 2024-12-31 07:01 | disposition home or self-care (01) ==
LOC: HO.LAB 07:00
PROVIDERS: Urology; PCP Internal Medicine; Visit Provider Internal Medicine
DX: Z12.5 Encounter for screening for malignant neoplasm of prostate (principal); N40.1 Benign prostatic hyperplasia with lower urinary tract symptoms; R35.1 Nocturia; R30.0 Dysuria; D64.9 Anemia, unspecified; E78.00 Pure hypercholesterolemia, unspecified; E03.9 Hypothyroidism, unspecified; E55.9 Vitamin D deficiency, unspecified
CPT/HCPCS: 36415; 80053; 80061; 81003; 82306; 84153; 84439; 84443; 85025

== ENCOUNTER 2025-01-06 12:49 | Outpatient (REF) | payer MEDICARE, SELFPAY ==
--- NOTE | ~2025-01-06 | XR_ITS ---
EXAMINATION: XR SHOULDER, RIGHT CLINICAL INFORMATION: M25.511 - Pain in right shoulder COMPARISON: None available. TECHNIQUE: AP external rotation, Grashey, scapular Y, and axillary views of the right shoulder. FINDINGS: No acute cortical disruption or malalignment. Small marginal osteophyte formation at inferior glenoid foci in the inferior humeral head. No lytic or blastic lesions. XR/XR shoulder RT min 2V IMPRESSION: No acute fracture or dislocation. Mild degenerative changes. Electronically signed by: Filippo Aguiar MD 01/06/2025 02:16 PM EDT
== END 2025-01-06 12:50 | disposition home or self-care (01) ==
LOC: HO.XRAY 12:49
PROVIDERS: PCP Internal Medicine; Visit Provider Internal Medicine
DX: Z00.00 Encounter for general adult medical examination without abnormal findings (principal); E03.9 Hypothyroidism, unspecified; D64.9 Anemia, unspecified; M85.89 Other specified disorders of bone density and structure, multiple sites; M25.511 Pain in right shoulder; H61.23 Impacted cerumen, bilateral; N52.2 Drug-induced erectile dysfunction; T50.905A Adverse effect of unspecified drugs, medicaments and biological substances, initial encounter; Z79.899 Other long term (current) drug therapy; Z13.31 Encounter for screening for depression; Z13.39 Encounter for screening examination for other mental health and behavioral disorders
CPT/HCPCS: 73030; 96127; 99212

== ENCOUNTER 2025-01-06 12:49 | Outpatient (AMB) | payer MEDICARE, SELFPAY ==
--- NOTE | 2025-01-06 12:52 | A.OFFPC_ITS ---
Vital Signs 01/06/25 12:53 Height 5 ft 9 in Weight 167 lb 6 oz BMI 24.7 BP 118/90 H Blood Pressure Location Lt brachial Position Sitting Pulse 67 Pulse Source Pulse Oximeter Pulse Oximetry (%) 98 Oxygen Delivery Method Room Air Intake Visit Reasons: Annual Exam Broadcast Technician Required: No Accompanied by: Self / Same As Patient Allergies No Known Allergies Allergy (Verified 01/06/25 13:09) Medication List - Last Reconciled 01/06/25 by David Calhoun MD levothyroxine 150 mcg PO DAILY 90 days sildenafil 100 mg PO DAILY PRN Tobacco use date assessed: 01/06/25 Fall risk assessment: No Falls in past year Last assessed Fall Risk: 01/06/25 Dental Screening Dental Screen Date: 01/06/25 Did you have a dental visit in the last 12 months?: Yes Did you have a dental problem in the last 6 months where you did not have access to dental care?: No Was dental information given to patient?: Patient has dentist HPI Annual Exam HPI Details Patient comes in today for his annual physical examination States that he feels okay but has a couple of issues that he would like some help to get addressed Recalls that he first injured his right shoulder back in 1986 and since then, his right shoulder has been bothering him every now and then but these have always been manageable He has noticed that his right shoulder has been feeling more achy lately States that he is still able to move his shoulder freely (has no ROM limitation) but he would now feel some clicking in his shoulder when he moves his arm around Adds that his ears feel like they are clogged up often lately and thinks that he may need to have his ears irrigated at some point He denies any ear pain He denies any headaches or dizziness Denies any chest pains, no SOB No nausea/vomiting, no abdominal pain No change in bowel habits noted He denies any acute urinary symptoms He had his follow up labs done last week - to discuss his results He is up-to-date with his colon cancer screening and is not due for repeat colonoscopy until 2027 Adds that he would like to see if he can be sent for a coronary CT score - states that he's had a few family members who had that done recently and some of them came back with (+) results States that he would also like to have his own personal risk assessed if possible [facility] Medical History History of Graves' disease Hx of radioactive iodine thyroid ablation (~1990) Acquired hypothyroidism Osteopenia Surgical History Hx of colonoscopy Family History Father Diabetes Hypertension Cancer Mother Hypertension Social History [facility] Alcohol intake: current Alcohol intake frequency: holidays/special occasions only Patient Tobacco Use Status: Never used Tobacco e-Cigarette/Vaping Use: Never Used Second Hand Smoke Exposure: Yes service: No Current occupational status: employed Cognitive needs: No Hearing needs: No Vision needs: Yes Questionnaire PHQ-9 Over the last 2 weeks, how often have you been bothered by any of the following problems? 1. Little interest or pleasure in doing things: not at all 2. Feeling down, depressed, or hopeless: not at all 3. Trouble falling or staying asleep, or sleeping too much: not at all 4. Feeling tired or having little energy: not at all 5. Poor appetite or overeating: not at all 6. Feeling bad about yourself - or that you are a failure or have let yourself or your family down: not at all 7. Trouble concentrating on things, such as reading the newspaper or watching television: not at all 8. Moving or speaking so slowly that other people could have noticed. Or the opposite - being so fidgety or restless that you have been moving around a lot more than usual: not at all 9. Thoughts that you would be better off or of hurting yourself in some way: not at all Total score: 0 Depression Screening Interpretation: Negative Depression Screening Done: Yes 99695 - PHQ-9 Billing: Yes Source: Developed by Drs. Ayaz Smith, Larisa Henao, Marcio Rosario and colleagues, with an educational conrad from [employer]. Thrive Questionnaire Date Thrive assessed: 01/06/25 I am a: Patient What is your living situation today?: I have a steady place to live Within the past 12 months, did the food you bought not last and you didn't have the money to get more?: Never true Within the past 12 months, did you worry whether your food would run out before you got money to buy more?: Never true Do you have trouble paying for medicines?: No Do you have trouble getting transportation to medical appointments?: No Do you have trouble paying your heating and electricity bill?: No Do you have trouble taking care of your child, family member or friend?: No Do you have trouble with day-to-day activities such as bathing, preparing meals, shopping, managing finances, etc.?: No Are you currently unemployed and looking for a job?: No Are you interested in more education?: No Please select the resources that you would like help with: None Currently or been in a relationship where the following occur: No concerns reported THRIVE Score: 0 AUDIT C Alcohol Use Questionnaire (AUDIT-C) 1. How often do you have a drink containing alcohol?: 4 or more times a week 2. How many drinks containing alcohol do you have on a typical day when you are drinking?: 1 or 2 3. How often do you have six or more drinks on one occasion?: Never Total Score: 4 Score Reviewed/Action Taken: Yes RAE-7 AMB Questionnaire RAE-7 Date RAE - 7 assessed: 01/06/25 Feeling nervous, anxious, or on edge: 0 = Not at all Not being able to stop or control worryin = Not at all Worrying too much about different things: 0 = Not at all Trouble relaxin = Not at all Being so restless that it is hard to sit still: 0 = Not at all Becoming easily annoyed or irritable: 0 = Not at all Feeling afraid as if something awful might happen: 0 = Not at all Total RAE-7 score (0-4 normal; 5-9 mild; 10-14 moderate; 15-21 severe): 0 Source: Developed by Drs. Ayaz Smith, Larisa Henao, Marcio Rosario and colleagues, with an educational conrad from [employer]. Review of Systems Const Denies chills, Denies fatigue, Denies fever(s), Denies headache(s), Denies malaise and Denies weakness Eyes Denies blurry vision, Denies change in vision, Denies irritation and Denies itchy eyes ENT Denies dysphagia, Denies dizziness, Denies otalgia (but ears feel clogged often lately), Denies headache(s), Denies nasal congestion, Denies neck pain, Denies odynophagia and Denies sore throat Card Denies chest pain, Denies rapid heart rate, Denies irregular heart rhythm, Denies palpitations and Denies dyspnea Resp Denies chest congestion, Denies cough, Denies dyspnea and Denies wheezing GI Denies abdominal pain, Denies bloating, Denies constipation, Denies dysphagia, Denies heartburn, Denies diarrhea, Denies nausea, Denies odynophagia and Denies vomiting Denies hematuria, Denies difficulty urinating, Denies dysuria, Denies urinary frequency and Denies urinary urgency Musc Denies back pain, Denies arthralgias (but (+) right shoulder discomfort often lately), Denies joint swelling, Denies muscle weakness and Denies neck pain Skin/Breast Denies change in pigmentation, Denies lesions, Denies rash and Denies unusual bruising Neuro Denies dizziness, Denies headache(s), Denies paresthesias and Denies weakness Endo Denies fatigue and Denies palpitations Aller/Immun Denies itchy eyes and Denies wheezing Physical exam (Primary Care) Vital Signs: Last Vital Signs Pulse 67 01/06/25 12:53 BP 118/90 H 01/06/25 12:53 Pulse Ox 98 01/06/25 12:53 Oxygen Delivery Method Room Air 01/06/25 12:53 BMI result Body Mass Index 24.7 Tobacco/Smoking Status: Tobacco use Status Tobacco use date assessed 01/06/25 01/06/25 12:59 Patient Tobacco Use Status Never used Tobacco 01/06/25 12:59 e-Cigarette/Vaping Use Never Used 01/06/25 12:59 PHQ-9: PHQ-9 Score PHQ-9: Total score 0 01/06/25 12:59 Depression Screening Interpretation: Negative Thrive Assessment: Date of Thrive Assessment Date Thrive assessed 01/06/25 01/06/25 12:59 Currently or been in a relationship where the following occur: No concerns reported Const General: no acute distress, alert and awake Orientation/consciousness: patient oriented x3 HENMT Head: Yes normocephalic and Yes atraumatic Ears: external ears normal, Abnormal EAC present cerumen impaction bilateral and unable to visualize TM bilaterally General nose exam: No nasal discharge present Face and sinus: Yes normal facial exam and Yes sinuses nontender Teeth and gingiva: dentition normal Throat: Yes posterior oropharynx normal and Yes tonsils normal (no TP congestion) Eyes Eyelids: Yes eyelids normal Conjunctivae: conjunctivae normal Pupils: Equal, round and reactive pupils present EOM: EOMs intact bilaterally Neck Neck: Yes no lymphadenopathy and Yes supple Thyroid: Thyroid normal Resp Auscultation: clear to auscultation bilaterally, no rales and no wheezes Cardio Rate: regular rate Rhythm: regular rhythm Heart sounds: no murmurs GI Palpation (GI): Soft to palpation, nontender and No hepatosplenomegaly present Auscultation: normal bowel sounds General: Yes no CVA tenderness Back/Spine/Pelvis Back: no CVA tenderness Thoracic/Lumbar Spine: thoracic and lumbar spine normal to inspection Skin Lesions: no lesions Rashes: no rashes Neuro General: patient oriented x3, moves all extremities, no focal motor deficits and CN's II-XI intact bilaterally Cranial nerves: Yes Equal, round and reactive pupils present Cognition (Neuro): normal cognition Gait exam (Neuro): Normal gait present Extrem General: Yes no clubbing, cyanosis or edema Results Reviewed Results Reviewed: Laboratory Tests 12/31/24 12/31/24 07:24 07:26 WBC 3.6 L Hgb 12.1 L Hct 37.8 L Plt Count 229 Sodium 139 Potassium 4.4 Creatinine 1.00 Estimated GFR > 60 Fasting Glucose 97 Calcium 8.4 AST 33 ALT 33 Triglycerides 41 Cholesterol 184 LDL Cholesterol, Calc 97 HDL Cholesterol 79 Total PSA 0.30 25-OH Vitamin D Total 33.0 TSH 0.41 Free T4 1.62 Ur Specific Munith 1.020 Urine Protein Negative Urine Glucose (UA) Negative Urine Blood Negative Urine Nitrite Negative Ur Leukocyte Esterase Negative Coding Level of Care Code Est Pt Prev Care >65y(52094) Diagnoses Annual physical exam Z00.00 Acquired hypothyroidism E03.9 Anemia, unspecified type D64.9 Anemia type: unspecified type Osteopenia of multiple sites M85.89 Osteopenia location: multiple sites Right shoulder pain, unspecified chronicity M25.511 Chronicity: unspecified Impacted cerumen of both ears H61.23 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 Erectile dysfunction type: drug-induced Additional Codes PHQ-9 - 05937 - PHQ-9 Billing: Yes ([id number]) Assessment & Plan Assessment & Plan (1) Annual physical exam: Code(s): Z00.00 - Encounter for general adult medical examination without abnormal findings Category: Medical Plan: Results of his labs done last week reviewed and discussed with patient He is up-to-date with his colon cancer screening and is not due for repeat colonoscopy until 2027 Per request, will also try sending him for coronary CT score for further evaluation/risk assessment (2) Acquired hypothyroidism: Comment: postablative hypothyroidism - (+) Hx of Grave's disease Code(s): E03.9 - Hypothyroidism, unspecified Category: Medical Plan: His TFTs done last week came back normal Continue Levothyroxine 150 mcg daily Follow up with endocrinology as scheduled Will recheck his labs again in 1 year (3) Anemia: Code(s): D64.9 - Anemia, unspecified Category: Medical Qualifiers: Anemia type: unspecified type Qualified Code(s): D64.9 - Anemia, unspecified Plan: His anemia is mostly mild and based on his previous lab results, he's had mild anemia for the past few years, likely because he goes to donate blood regulary a few times a year States that he used to donate platelets but now mostly donates power reds Have advised him to try to cut back (at least in half) on his blood donation to allow his bone marrow some more time to recover Will recheck his CBC in 1 year (4) Osteopenia: Code(s): M85.80 - Other specified disorders of bone density and structure, unspecified site Category: Medical Qualifiers: Osteopenia location: multiple sites Qualified Code(s): M85.89 - Other specified disorders of bone density and structure, multiple sites Plan: BMD done on 06/21/2018 showed (+) osteopenia Patient is again encouraged to continue exercising regularly His Vitamin D level is normal on his recent labs Will send him for repeat BMD for follow up as it has been almost 7 years now since he last had his BMD checked (5) Right shoulder pain: Code(s): M25.511 - Pain in right shoulder Category: Medical Qualifiers: Chronicity: unspecified Qualified Code(s): M25.511 - Pain in right shoulder Plan: Will send patient for x-rays of the right shoulder for further evaluation (6) Impacted cerumen of both ears: Code(s): H61.23 - Impacted cerumen, bilateral Category: Medical Plan: He is instructed to start applying Debrox ear drops (can get OTC) into both ears BID as instructed for the next 7 to 10 days Will have him return in a couple of weeks to recheck his ears and for ear irrigation if necessary (7) Erectile dysfunction: Code(s): N52.9 - Male erectile dysfunction, unspecified Category: Medical Qualifiers: Erectile dysfunction type: drug-induced Qualified Code(s): N52.2 - Drug-induced erectile dysfunction Plan: Continue Sildenafil 100 mg QD PRN as instructed Plan To return in 1 year for his next annual physical examination Orders: Orders CT Coronary Calcium Score Today I25.10 - Atherosclerotic heart disease of [place] coronary artery without angina pectoris Comprehensive [place]. Panel Fast 1 Year E78.00 - Pure hypercholesterolemia, unspecified, Z00.00 - Encounter for general adult medical examination without abnormal findings Lipid Panel 1 Year E78.00 - Pure hypercholesterolemia, unspecified, Z00.00 - Encounter for general adult medical examination without abnormal findings Free T4 (Free Thyroxine) 1 Year E03.9 - Hypothyroidism, unspecified, Z00.00 - Encounter for general adult medical examination without abnormal findings Thyroid Stimulating Hormone 1 Year E03.9 - Hypothyroidism, unspecified, Z00.00 - Encounter for general adult medical examination without abnormal findings UA CC w/rflx Micro + Cult 1 Year R30.0 - Dysuria, Z00.00 - Encounter for general adult medical examination without abnormal findings XR shoulder RT min 2V Today M25.511 - Pain in right shoulder XR DEXA axial skeleton Today M85.89 - Other specified disorders of bone density and structure, multiple sites, Z86.39 - Personal history of other endocrine, nutritional and metabolic disease Complete Blood Count Auto Diff 1 Year D64.9 - Anemia, unspecified, Z00.00 - Encounter for general adult medical examination without abnormal findings Vitamin D 25-OH Total 1 Year E55.9 - Vitamin D deficiency, unspecified, Z00.00 - Encounter for general adult medical examination without abnormal findings Vitamin B12 and Folate 1 Year E53.8 - Deficiency of other specified B group vitamins, Z00.00 - Encounter for general adult medical examination without abnormal findings
[2025-01-06 12:53] VITALS: BP 118/90; PULSE 67; O2SAT 98; BMI 24.7
--- OUTSIDE RECORDS SUMMARY | 2025-01-06 14:02 | XMS_ITS | Patient Health Record ---
Author Organization [facility] Address [address] [place] [address] Care Team Providers Care Mixing And Molding Machine Operator Name Role Phone Lj WHITE, [place] Primary Care Provider UnaAyaz Pickard Unavailable [phone] Allergies No Known Allergies Reason For Referral No Information Medications Medication SIG (Take, Route, Fr equency, Duration) Notes Start Date End Date Status Synthroid .125mg Act ag Viagra 25 MG 1 tablet as needed O rally Once a day for 30 day(s) Active Immunizations Vaccine Route Administration Date Status Comme nts Influenza Unknown 03/14/2022 Administered Problems Problem Type SNOMED Code ICD Code Onset Dates Problem Status W/U Status Risk Notes Problem 016195549 Colon cancer screening (Z12.11) Active confirmed Problem 534064394 History of adenomatous polyp of colon (Z86.010) Active confirmed Problem Diverticular disease of colon (370035948) Diverticulosis of large intestine without perforation or abscess without bleeding (K57.30) Active confirmed Problem [id number] Preprocedural examination (Z01.818) Active confirmed Plan Of Treatment Pending Test Test Name Order Date Pathology 06/04/2023 Future Test Test Name Order Date COLONOSCOPY 11/19/2012 COLONOSCOPY CONTROL OF BLEEDING ANY METH OD 03/14/2023 Insurance Providers Payer Name Payer Address Payer Phone Subscriber Number Group Number Insured Name Patient Relationship to Insured Coverage Start Date Coverage End Date [facility] [employer] PROF[employer]AL CLAIMS [address] [place] [address] [id number] DOUG LAMBERT Self - patient is the insured Medical (General) History Medical History History ICD Code 1 small tubular adenoma removed in [address] Cota Colonoscopy 08-26-2007--negative Negative screening colonoscopy in December 24 013 Grave's Disease without eye involvement Denies CA,DM,CVA,Lung disease,renal dise ase Surgical History Surgery Date(Month/Year) Eye surgery 1965 Skin cancer--squamous cell on his left t emple 02/2023
== END 2025-01-06 13:43 | disposition home or self-care (01) ==
LOC: HO.HMCH 12:50
PROVIDERS: PCP Internal Medicine; Visit Provider Internal Medicine
DX: M25.511 Pain in right shoulder (principal); H61.23 Impacted cerumen, bilateral; E03.9 Hypothyroidism, unspecified; D64.9 Anemia, unspecified; M85.89 Other specified disorders of bone density and structure, multiple sites; N52.2 Drug-induced erectile dysfunction

== ENCOUNTER → 2025-01-06 13:53 | Outpatient (BNV) | payer MEDICARE, SELFPAY | PROVIDERS: PCP Internal Medicine; Visit Provider Radiology Diagnostic Radiology | DX: M25.511 Pain in right shoulder (principal) | CPT/HCPCS: 73030 ==

== ENCOUNTER → 2025-01-20 10:11 | Outpatient (BNVA) | payer MEDICARE, SELFPAY | PROVIDERS: PCP Internal Medicine; Visit Provider Internal Medicine | DX: H61.23 Impacted cerumen, bilateral (principal) | CPT/HCPCS: 69210 ==

== ENCOUNTER 2025-01-20 10:30 | Outpatient (AMB) | payer MEDICARE, SELFPAY ==
[2025-01-20 10:31] VITALS: BP 118/62; PULSE 83; RESP 18; TEMP 36.2; O2SAT 97; BMI 24.7
--- NOTE | 2025-01-20 10:31 | A.OFFPC_ITS ---
Vital Signs 01/20/25 10:31 Height 5 ft 9 in Weight 167 lb BMI 24.7 BP 118/62 Blood Pressure Location Lt brachial Position Sitting Respiration 18 Pulse 83 Pulse Source Pulse Oximeter Temp 97.1 F Temp Source Temporal Artery Scan Pulse Oximetry (%) 97 Oxygen Delivery Method Room Air Intake Visit Reasons: Ear flush/cleaning Laundry Machine Operator Required: No Accompanied by: Self / Same As Patient Allergies No Known Allergies Allergy (Verified 01/20/25 11:21) Medication List - Last Reconciled 01/20/25 by HOLLEY Hope levothyroxine 150 mcg PO DAILY 90 days sildenafil 100 mg PO DAILY PRN Tobacco use date assessed: 01/20/25 Fall risk assessment: No Falls in past year Last assessed Fall Risk: 01/20/25 Dental Screening Dental Screen Date: 01/20/25 Did you have a dental visit in the last 12 months?: Yes Did you have a dental problem in the last 6 months where you did not have access to dental care?: No Was dental information given to patient?: Patient has dentist HPI Ear flush/cleaning HPI Details The patient is a 69-year-old male presenting with cerumen impaction. The patient reports that the right ear is more affected than the left, with a sensation of fullness and occasional humming sounds. He has been using Dibrox ear drops for the past two weeks without significant improvement. The patient has a history of recurrent cerumen impaction, with this being his third procedure. His father also had a history of similar issues, suggesting a possible hereditary component. He denies any pain associated with the condition but notes that it can cause a temporary sensation of imbalance when lying on his side. [facility] Medical History History of Graves' disease Hx of radioactive iodine thyroid ablation (~1990) Acquired hypothyroidism Osteopenia Surgical History Hx of colonoscopy Family History Father Diabetes Hypertension Cancer Mother Hypertension Social History Housing: Condominium Alcohol intake: current Alcohol intake frequency: holidays/special occasions only Patient Tobacco Use Status: Never used Tobacco e-Cigarette/Vaping Use: Never Used Second Hand Smoke Exposure: Yes service: No Current occupational status: employed Cognitive needs: No Hearing needs: No Vision needs: Yes Questionnaire PHQ-9 Over the last 2 weeks, how often have you been bothered by any of the following problems? 1. Little interest or pleasure in doing things: not at all 2. Feeling down, depressed, or hopeless: not at all 3. Trouble falling or staying asleep, or sleeping too much: not at all 4. Feeling tired or having little energy: not at all 5. Poor appetite or overeating: not at all 6. Feeling bad about yourself - or that you are a failure or have let yourself or your family down: not at all 7. Trouble concentrating on things, such as reading the newspaper or watching television: not at all 8. Moving or speaking so slowly that other people could have noticed. Or the opposite - being so fidgety or restless that you have been moving around a lot more than usual: not at all 9. Thoughts that you would be better off or of hurting yourself in some way: not at all Total score: 0 Depression Screening Interpretation: Negative Depression Screening Done: Yes Source: Developed by Drs. Ayaz Smith, Larisa Henao, Marcio Rosario and colleagues, with an educational conrad from [employer]. Thrive Questionnaire Date Thrive assessed: 01/20/25 I am a: Patient What is your living situation today?: I have a steady place to live Within the past 12 months, did the food you bought not last and you didn't have the money to get more?: Never true Do you have trouble paying for medicines?: No Do you have trouble getting transportation to medical appointments?: No Do you have trouble paying your heating and electricity bill?: No Do you have trouble taking care of your child, family member or friend?: No Do you have trouble with day-to-day activities such as bathing, preparing meals, shopping, managing finances, etc.?: No Are you currently unemployed and looking for a job?: No Are you interested in more education?: No Please select the resources that you would like help with: None THRIVE Score: 0 AUDIT C Alcohol Use Questionnaire (AUDIT-C) 1. How often do you have a drink containing alcohol?: 4 or more times a week 2. How many drinks containing alcohol do you have on a typical day when you are drinking?: 1 or 2 3. How often do you have six or more drinks on one occasion?: Never Total Score: 4 RAE-7 AMB Questionnaire RAE-7 Date RAE - 7 assessed: 01/20/25 Feeling nervous, anxious, or on edge: 0 = Not at all Not being able to stop or control worryin = Not at all Worrying too much about different things: 0 = Not at all Trouble relaxin = Not at all Being so restless that it is hard to sit still: 0 = Not at all Becoming easily annoyed or irritable: 0 = Not at all Feeling afraid as if something awful might happen: 0 = Not at all Total RAE-7 score (0-4 normal; 5-9 mild; 10-14 moderate; 15-21 severe): 0 Source: Developed by Drs. Ayaz Smith, Larisa Henao, Marcio Rosario and colleagues, with an educational conrad from [employer]. Review of Systems Const Denies headache(s) ENT Denies vertigo, Denies dizziness, Denies otalgia, Denies headache(s), Denies hearing loss, Denies disequilibrium and Denies tinnitus Card Denies chest pain, Denies leg edema and Denies dyspnea Resp Denies cough and Denies dyspnea GI Reports no additional complaints Neuro Denies vertigo, Denies dizziness, Denies headache(s) and Denies disequilibrium Physical exam (Primary Care) Vital Signs: Last Vital Signs Temp 97.1 F 01/20/25 10:31 Pulse 83 01/20/25 10:31 Resp 18 01/20/25 10:31 BP 118/62 01/20/25 10:31 Pulse Ox 97 01/20/25 10:31 Oxygen Delivery Method Room Air 01/20/25 10:31 BMI result Body Mass Index 24.7 Tobacco/Smoking Status: Tobacco use Status Tobacco use date assessed 01/20/25 01/20/25 10:38 Patient Tobacco Use Status Never used Tobacco 01/20/25 10:38 e-Cigarette/Vaping Use Never Used 07/29/25 10:38 PHQ-9: PHQ-9 Score PHQ-9: Total score 0 01/20/25 12:27 Depression Screening Interpretation: Negative Thrive Assessment: Date of Thrive Assessment Date Thrive assessed 01/20/25 01/20/25 10:38 Const General: cooperative Nutritional Appearance: average body habitus HENMT Head: Yes normocephalic Ears: Abnormal EAC present cerumen impaction bilateral General nose exam: Normal nasal mucous membranes and turbinates present Eyes Pupils: Equal, round and reactive pupils present Resp Effort & Inspection: normal respiratory effort Auscultation: clear to auscultation bilaterally Cardio Rate: regular rate Rhythm: regular rhythm Neuro Cranial nerves: Yes Equal, round and reactive pupils present Coding Level of Care Code Procedure Only Diagnoses Impacted cerumen of both ears H61.23 Time Spent (min) 23 Assessment & Plan Assessment & Plan (1) Impacted cerumen of both ears: Code(s): H61.23 - Impacted cerumen, bilateral Category: Medical Plan: Bilateral ear flushed, lighted curette used to remove residual cerumen. Resulted with both TMs pearly reyes with positive cone of light and clean ear canals without cerumen. Plan The plan involves performing ear irrigation to remove the cerumen impaction, particularly focusing on the right ear where the impaction is more significant. The patient was advised that the procedure might cause temporary dizziness due to manipulation of the ear canal and balance system. Follow-up care includes monitoring for any signs of infection or persistent symptoms, and the patient was instructed to return if symptoms do not resolve or if they worsen. Patient was informed and verbally consented to the use of an ambient scribe for clinic note documentation during this visit.
== END 2025-01-20 12:44 | disposition home or self-care (01) ==
LOC: HO.HMCH 10:30
PROVIDERS: PCP Internal Medicine
DX: H61.23 Impacted cerumen, bilateral (principal)

== ENCOUNTER 2025-02-13 10:14 | Outpatient (AMB) | payer MEDICARE, SELFPAY ==
--- OUTSIDE RECORDS SUMMARY | 2025-02-13 10:18 | XMS_ITS | Patient Health Record ---
Author Organization [facility] Address [address] [place] [address] Care Team Providers Care Inspector Packager Name Role Phone Lj WHITE, [place] Primary Care Provider UnaAyaz Pickard Unavailable [phone] Allergies No Known Allergies Reason For Referral [...] Problem Status W/U Status Risk Notes Problem 812416943 Colon cancer screening (Z12.11) Active confirmed Problem 602952774 History of adenomatous polyp of colon (Z86.010) Active confirmed Problem Diverticulosis o f large intestine without perforation or abscess without bleeding (K57.30) Active confirmed Problem 308370962837136 Preprocedural examination (Z01.818) Active confirmed Plan Of Treatment Pending Test Test Name Order Date Pathology 06/04/2023 Future Test Test Name Order Date COLONOSCOPY 11/19/2012 COLONOSCOPY CONTROL OF BLEEDING ANY METH OD 03/14/2023 Insurance Providers Payer Name Payer Address Payer Phone Subscriber Number Group Number Insured Name Patient Relationship to Insured Coverage Start Date Coverage End Date [employer] PROF[employer]AL CLAIMS [address] [place] [address] [id number] DOUG LAMBERT Self - patient is the insured Medical (General) History Medical History History ICD Code 1 small tubular adenoma removed in 6/[address] Cota Colonoscopy 08-26-2007--negative Negative screening colonoscopy in December 24 013 Grave's Disease without eye involvement Denies [place],DM,CVA,Lung disease,renal dise ase Surgical History Surgery Date(Month/Year) Eye surgery 1965 Skin cancer--squamous cell on his left t emple 02/2023
--- NOTE | 2025-02-13 11:22 | A.OFFVIS_ITS ---
Intake Visit Reasons: 9m/PVR Intake Note: Patient is present for 9m follow up/PVR Urology Medication:SILDENAFIL Antibiotic Allergy:NONE Blood Thinner:NONE PVR:0ml Nutrition Worker Required: No Allergies No Known Allergies Allergy (Verified 02/13/25 11:23) HPI Comments Details: 02/13/25--Christopher is followed for kidney stones and LUTS. no h/o of kidney stones drinks coffee which may contrib to urinary frequ PSA 12/31/24--0.30 ng/mL Follow-up in 1 [id number] ultrasound and PSA prior 07/10/24--Christopher is followed for kidney stones and LUTS. Discussed 24 hour urin e results: Total volume 2.47 L, Calcium 261 mg; Oxalate 30 mg, Sodium 87, Citrate 763 mg. Instructed on importance of fluid intake, Low oxalate diet, low sodium diet. 05/12/24--complains of urge incontinence, Renal US -05/07/24-images, US retroperitoneum--Left kidney simple cyst, no solid parenchymal lesions, bladder moderate PVR- 217 ML, bilateral ureteral jets. viagra 100 mg prn prescribed by PCP Discusses options to help with bladder emptying also discussed as bladder wall may thicken and contribute to bladder spasms. Pt wants to avoid medications. H/O kidney stones, 24 hr urine pending. monitor PSA. Pt states father had bladder cancer. fu in 9 months check PVR consider cysto. review of chart: 03/03/24--Christopher is a 68 year old male with concerns regarding prostate, he stat es he has had changes in urination. AUA score 14. He admits that he drinks about 3-4 cups of coffee during the day. Denies FH of prostate cancer. Denies use of nicotine. Discussed PSA results, 12/25/23--0.44 ng/mL. Prostate exam, mildly enlarged,smooth, irregular no hard nodules. UA - negative. Plan US retroperitoneum. [facility] Medical History History of Graves' disease Hx of radioactive iodine thyroid ablation (~1990) Acquired hypothyroidism Osteopenia Surgical History Hx of colonoscopy Family History Father Diabetes Hypertension Cancer Mother Hypertension Social History Housing: Condominium Alcohol intake: current Alcohol intake frequency: holidays/special occasions only Patient Tobacco Use Status: Never used Tobacco e-Cigarette/Vaping Use: Never Used Second Hand Smoke Exposure: Yes service: No Current occupational status: employed Cognitive needs: No Hearing needs: No Vision needs: Yes Results AMB Urinalysis, Automated UA Leukoctes 0 Anna Marie/uL Last Edit by Ellyn Suero on 02/13/25 17:13 UA Nitrite Negative Last Edit by Ellyn Suero on 02/13/25 17:13 UA Urobilinogen 3.5 mg/dL Last Edit by Ellyn Suero on 02/13/25 17:13 UA Protein 0 mg/dL Last Edit by Ellyn Suero on 02/13/25 17:13 UA pH 6.0 Last Edit by Ellyn Suero on 02/13/25 17:13 UA Blood 0 Viral/uL Last Edit by Ellyn Suero on 02/13/25 17:13 UA Specific [place] 1.010 Last Edit by Ellyn Suero on 02/13/25 17:13 UA Ketone Negative Last Edit by Ellyn Suero on 02/13/25 17:13 UA Bilirubin 0 mg/dL Last Edit by Ellyn Suero on 02/13/25 17:13 UA Glucose 0 mg/dL Last Edit by Ellyn Suero on 02/13/25 17:13 Assessment & Plan Assessment & Plan Orders: Orders AMB Urinalysis Automated Today Z13.9 - Encounter for screening, unspecified AMB Post Void Residual by ultrasound Today R35.0 - Frequency of micturition Coding
== END 2025-02-13 11:48 | disposition home or self-care (01) ==
LOC: HO.HUSH 10:15
PROVIDERS: PCP Internal Medicine; Visit Provider Urology
DX: Z13.9 Encounter for screening, unspecified (principal)

== ENCOUNTER → 2025-02-13 10:14 | Outpatient (BNVA) | payer MEDICARE, SELFPAY | PROVIDERS: PCP Internal Medicine; Visit Provider Urology | DX: N40.1 Benign prostatic hyperplasia with lower urinary tract symptoms (principal); R35.0 Frequency of micturition; R35.1 Nocturia; Z12.5 Encounter for screening for malignant neoplasm of prostate | CPT/HCPCS: 81003 ==

== ENCOUNTER 2025-03-04 08:40 | Outpatient (REF) | payer MEDICARE, SELFPAY ==
--- NOTE | ~2025-03-04 | MM_ITS ---
EXAMINATION: DXA BONE DENSITY AXIAL HISTORY: M85.89 - Other specified disorders of bone density and structure, multiple... TECHNIQUE: [facility] Dual energy absorptiometry (DEXA) of the lumbar spine, total left hip, and femoral neck was performed. COMPARISON: Comparison is made with the prior examination dated 06/21/2018. FINDINGS: The bone mineral density of the lumbar spine is 0.973 g/cm2, corresponding to a T-score of -2.1, and a Z-score of -1.4. This is indicative of osteopenia. This represents a BMD change of -8.6% compared to the prior exam. This is statistically significant. The bone mineral density of the left total hip is 0.876 g/cm2, corresponding to a T-score of -1.6, and a Z-score of -0.8. This is indicative of osteopenia. This represents a BMD change of -1.9% compared to the prior exam. This is not statistically significant. The bone mineral density of the left femoral neck is 0.838 g/cm2, corresponding to a T-score of -1.8, and a Z-score of -0.5. This is indicative of osteopenia. This represents a BMD change of -6.1% compared to the prior exam. FRACTURE RISK: The FRAX index suggests a ten year probability of major osteoporotic fracture of 7.2%, and of hip fracture 1.6%. MM/XR DEXA axial skeleton IMPRESSION: Based on bone mineral density, and according to World Health Organization (WHO) criteria, the diagnosis is consistent with osteopenia. Statistically, 68% of repeat scans fall within 1 SD (+/- 0.010 g/cm2 for AP spine L1-L4) and 1 SD (+/- 0.012 g/cm2 for femur total) FRAX is a trademark of the [employer]'s [place] [facility] Metabolic Bone Disease, a World Health Organization (WHO) Collaborating Center. Electronically signed by: Ayaz Sagastume MD 03/04/2025 09:45 AM EDT
--- OUTSIDE RECORDS SUMMARY | 2025-03-04 10:03 | XMS_ITS | Patient Health Record ---
Author Organization [facility] Address [address] [place] [address] Care Team Providers Care Tenant Coordinator Name Role Phone Lj WHITE, [place] Primary Care Provider UnaAyaz Pickard Unavailable [phone] Allergies No Known Allergies Reason For Referral [...] Problem Status W/U Status Risk Notes Problem [id number] Colon cancer screening (Z12.11) Active confirmed Problem 341186789 History of adenomatous polyp of colon (Z86.010) Active confirmed Problem Diverticular disease of colon (098300667) Diverticulosis of large intestine without perforation or abscess without bleeding (K57.30) Active confirmed Problem 061589513525121 Preprocedural examination (Z01.818) Active confirmed Plan Of Treatment Pending Test Test Name Order Date Pathology 06/04/2023 Future Test Test Name Order Date COLONOSCOPY 11/19/2012 COLONOSCOPY CONTROL OF BLEEDING ANY METH OD 03/14/2023 Insurance Providers Payer Name Payer Address Payer Phone Subscriber Number Group Number Insured Name Patient Relationship to Insured Coverage Start Date Coverage End Date [facility] BCBS PROFESSIONAL CLAIMS [address] [place] [address] [phone] [id number] DOUG LAMBERT Self - patient is the insured Medical (General) History Medical History History ICD Code 1 small tubular adenoma removed in [address] Cota Colonoscopy 08-26-2007--negative Negative screening colonoscopy in December 24 013 Grave's Disease without eye involvement Denies [place],DM,CVA,Lung disease,renal dise ase Surgical History Surgery Date(Month/Year) Eye surgery 1965 Skin cancer--squamous cell on his left t emple 02/2023
== END 2025-03-04 08:41 | disposition home or self-care (01) ==
LOC: HO.MAMMO 08:40
PROVIDERS: PCP Internal Medicine; Visit Provider Internal Medicine
DX: Z13.820 Encounter for screening for osteoporosis (principal); M85.89 Other specified disorders of bone density and structure, multiple sites; Z86.39 Personal history of other endocrine, nutritional and metabolic disease
CPT/HCPCS: 77080

== ENCOUNTER → 2025-03-04 08:45 | Outpatient (BNV) | payer MEDICARE, SELFPAY | PROVIDERS: PCP Internal Medicine; Visit Provider Radiology Diagnostic Radiology | DX: M85.89 Other specified disorders of bone density and structure, multiple sites (principal) | CPT/HCPCS: 77080 ==